=== PATIENT | male | born 1945 | race Caucasian/White ===

== ENCOUNTER 2018-07-04 20:07 | Inpatient (IN) | payer MEDICARE ==
[~2018-07-04] VITALS: Ht 190.5 cm; Wt 69.9 kg
--- NOTE | 2018-07-05 20:45 | NUR ---
GPS-CSR RETAIL NOTES: PATIENT ADMITTED FROM [facility]. ADMITTED ON 5149 FOR DTS. CAME TO THE UNIT AROUND 2044 VIA GURNEY, BROUGHT IN BY 2 EMT'S. PATIENT IS ADMITTED DUE TO SUICIDAL IDEATION AND A DESIRE TO VIA SHOOTING HIMSELF WITH HIS GUN. PT STATED "IF I WERE TO KILL MYSELF I WOULD SHOOT MYSELF IT WOULD BE QUICK AND EASY". PLACED PATIENT IN BED COMFORTABLY. PATIENT SHOWS NO S/SX OF ANY DISTRESS, RESPIRATION EVEN, BREATHING PATTERN NON-LABORED, DENIES PAIN OR DISCOMFORT AT THIS TIME. UPON FACE TO FACE ASSESSMENT PATIENT IS ALERT, ORIENTED 3, DEPRESSED, ANXIOUS, DENIES SI/HI OR HALLUCINATIONS AT THIS TIME. AMBULATES INDEPENDENTLY. PT. C/O PAIN ON HIS BACK ON A SCALE OF 7/10. BELONGINGS WERE INVENTORIED AND CHECKED FOR CONTRABAND. ORDERS WERE OBTAINED FROM DR. MOREL, AND UNDER THE MEDICAL CARE OF FEDERICO JULIAN, MED RECON DONE. SKIN ASSESSMENT DONE. BED LOCKED AND PLACED ON LOWEST POSITION TO MAINTAIN SAFETY. FALL PRECAUTIONS IMPLEMENTED. WILL CONTINUE TO MONITOR Q 15 MINS. FOR SAFETY AND BEHAVIOR.
[2018-07-05 21:00] VITALS: BP 141/95
[2018-07-05] MEDS ORDERED: MAGNESIUM HYDROXIDE 30 ML UDC PO PRN (21:00)
[2018-07-05] MEDS ORDERED: MAG HYDROX/AL HYDROX/SIMETH 30 ML UDC PO PRN (21:00)
[2018-07-05] MEDS ORDERED: DULO30CA2 PO (21:41)
[2018-07-05] MEDS ORDERED: OXYC10TA49 PO (21:41)
[2018-07-05] MEDS ORDERED: ONDA4TAB10 PO (21:41)
[2018-07-05] MEDS: TEMAZEPAM 7.5 MG CAPSULE PO PRN (22:06)
[2018-07-05] MEDS ORDERED: CLONIDINE HCL 0.1 MG TABLET PO PRN (23:30)
[2018-07-05] MEDS ORDERED: ONDANSETRON 4 MG TAB.RAPDIS SL PRN (23:30)
[2018-07-05] MEDS: HYDROCODONE/APAP 10/325MG 1 EA TABLET PO PRN (23:31)
[2018-07-05] MEDS: LORAZEPAM 0.5 MG TABLET PO PRN (23:51)
[2018-07-06] MEDS: HYDROCODONE/APAP 10/325MG 1 EA TABLET PO PRN ×3 (05:40→18:53)
[2018-07-06 07:32] LABS: BASOPHILS # (AUTO) 0.1 /CMM (0.0-0.2); BASOPHILS % (AUTO) 0.7 % (0.0-2.0); EOSINOPHILS % (AUTO) 0.5 % (0.0-6.0); HEMATOCRIT 43 % (39-51); LYMPHOCYTES # (AUTO) 2.1 /CMM (0.8-4.8); LYMPHOCYTES % (AUTO) 27.6 % (20.0-44.0); MEAN CORPUSCULAR HGB CONC 35 g/dl (31.0-36.0); MEAN CORPUSCULAR VOLUME 104 fL (80-96); MONOCYTES % (AUTO) 13.7 % (2.0-12.0); NEUTROPHILS # (AUTO) 4.4 /CMM (1.8-8.9); NEUTROPHILS % (AUTO) 57.5 % (43.0-81.0); PLATELET COUNT (AUTO) 240 /CMM (150-450); RED BLOOD CELL COUNT(AUTO) 4.15 MIL/uL (4.5-6.0); WHITE BLOOD COUNT (AUTO) 7.6 K/uL (4.3-11.0)
[2018-07-06 07:44] LABS: ALANINE AMINOTRANSFERASE 42 U/L (12-78); ALBUMIN 3.6 g/dL (3.4-5.0); ALKALINE PHOSPHATASE 58 U/L (46-116); ASPARTATE AMINOTRANSFERASE 33 U/L (15-37); BILIRUBIN,TOTAL 1.2 mg/dL (0.2-1.0); CALCIUM, SERUM 8.9 mg/dL (8.5-10.1); CARBON DIOXIDE 29 mmol/L (21-32); CHLORIDE 96 mmol/L (98-107); CREATININE 0.6 mg/dL (0.6-1.3); GLUCOSE 104 mg/dL (74-106); MAGNESIUM 2.3 mg/dL (1.8-2.4); PHOSPHORUS 2.8 mg/dL (2.5-4.9); SODIUM SERUM 133 mmol/L (136-145); TOTAL PROTEIN, SERUM 7.1 g/dL (6.4-8.2); UREA NITROGEN, BLOOD 10 mg/dL (7-18)
[2018-07-06 07:47] LABS: POTASSIUM 2.8 mmol/L (3.5-5.1)
[2018-07-06 07:54] LABS: CHOLESTEROL 134 mg/dL (<200); HDL CHOLESTEROL 56 mg/dL (40-60); LDL 78 mg/dL (0-99); THYROID STIMULATING HORMONE 5.064 uIU/mL (0.358-3.74); TRIGLYCERIDES 46 mg/dL (30-150)
[2018-07-06 08:00] VITALS: BP 133/89
[2018-07-06] MEDS: POTASSIUM CHLORIDE 10 MEQ TABLET.SA PO SCH ×2 (08:28→10:30)
[2018-07-06 08:48] LABS: APPEARANCE,URINE CLEAR (CLEAR); BILIRUBIN,URINE NEGATIVE (NEGATIVE); BLOOD, URINE NEGATIVE Ery/uL (NEGATIVE); COLOR,URINE YELLOW (YELLOW); KETONES,URINE NEGATIVE (NEGATIVE); LEUKOCYTE ESTERASE ,URINE NEGATIVE (NEGATIVE); NITRITE, URINE NEGATIVE (NEGATIVE); PROTEIN,URINE NEGATIVE (NEGATIVE); UGLUCOSE NEGATIVE (NEGATIVE); UROBILINOGEN,URINE 0.2 EU/dL (0.2)
[2018-07-06] MEDS: LORAZEPAM 0.5 MG TABLET PO PRN ×2 (10:27→22:37)
--- NOTE | 2018-07-06 10:28 | NUR ---
GPS/RN-NOTES PATIENT REQUESTING FOR ATIVAN FOR ANXIETY. ATIVAN 0.5MG P.O GIVEN PRN ORDER. WILL CONT. MONITORING FOR SAFETY AND BEHAVIOR.
--- NOTE | 2018-07-06 12:44 | NUR ---
GPS/RN-NOTES PATIENT REQUESTING FOR NORCO FOR 8/10 GENERALIZED BODY PAIN. NORCO 10/325MG P.O GIVEN PRN ORDER.
[2018-07-06 16:00] VITALS: BP 127/88
[2018-07-06] MEDS: NICOTINE PATCH (14MG) 14 MG PATCH.TD24 TD SCH (16:17)
--- NOTE | 2018-07-06 18:54 | NUR ---
GPS/RN-NOTES PATIENT REQUESTING FOR NORCO FOR 8/10 GENERALIZED BODY PAIN. NORCO 10/325MG P.O GIVEN PRN ORDER.
--- NOTE | 2018-07-06 19:53 | NUR ---
GPS/RN OPENING NOTES RECEIVED PATIENT AWAKE, ABLE TO VERBALIZE NEEDS, AMBULATORY, PAIN MEDICATION WAS GIVEN EARLY BEFORE START OF SHIFT, REPORT RECEIVED FROM AM RN FOR YENNY.WILL MONITOR.
[2018-07-06 20:00] VITALS: BP 130/67
--- NOTE | 2018-07-06 20:31 | NUR ---
GPS/RN NOTES PATIENT REQUESTING FOR SLEEP MEDICATION REPORTED UNABLE TO SLEEP WELL.WILL MONITOR.
[2018-07-06] MEDS: DULOXETINE HCL 30 MG CAPSULE.DR PO SCH (21:15)
[2018-07-06] MEDS: TEMAZEPAM 7.5 MG CAPSULE PO PRN (21:16)
--- NOTE | 2018-07-06 22:38 | NUR ---
GPS/RN NOTES REQUESTED ATIVAN PRN PATIENT REPORTED INABILITY TO RELAX.
[2018-07-07] MEDS: HYDROCODONE/APAP 10/325MG 1 EA TABLET PO PRN ×4 (02:58→21:08)
[2018-07-07 08:00] VITALS: BP 141/91
[2018-07-07] MEDS: NICOTINE PATCH (14MG) 14 MG PATCH.TD24 TD SCH (09:19)
[2018-07-07] MEDS: LORAZEPAM 0.5 MG TABLET PO PRN ×2 (09:22→15:03)
[2018-07-07 16:00] VITALS: BP 134/80
--- NOTE | 2018-07-07 17:32 | NUR ---
GPS RN NOTES-- PT'S NEED MET AND ANTICIPATED. PT HAS BEEN MED COMPLIANT AND COOPERATIVE WITH TREATMENT PLAN. PT IS NOT IN ANY APPARENT DISTRESS.SAFETY MEASURES ARE IN PLACE. REMINDED PT TO USE CALL DEWITT WHEN ASSISTANCE IS NEEDED.
[2018-07-07 20:19] VITALS: BP 113/66
[2018-07-07] MEDS: DULOXETINE HCL 30 MG CAPSULE.DR PO SCH (21:07)
[2018-07-07] MEDS: TEMAZEPAM 7.5 MG CAPSULE PO PRN (22:15)
[2018-07-08] MEDS: LORAZEPAM 0.5 MG TABLET PO PRN (00:10)
[2018-07-08] MEDS: HYDROCODONE/APAP 10/325MG 1 EA TABLET PO PRN ×2 (03:39→14:43)
--- NOTE | 2018-07-08 03:41 | NUR ---
GPS RN NOTE, PATIENT HAS A COMPLAINT OF CHRONIC BILATERAL LEG PAIN AT 8 OUT 10 ON THE PAIN SCALE AND IS REQUESTING NORCO AT THIS TIME. PATIENT VITAL SIGNS ARE STABLE. GAVE NORCO 10-325 1 TAB PO Q6HR PRN ORDERED. WILL REASSESS PAIN AND I WILL CONTINUE TO MONITOR THIS PATIENT.
[2018-07-08 06:11] LABS: APPEARANCE,URINE CLEAR (CLEAR); BILIRUBIN,URINE NEGATIVE (NEGATIVE); BLOOD, URINE NEGATIVE Ery/uL (NEGATIVE); COLOR,URINE YELLOW (YELLOW); KETONES,URINE NEGATIVE (NEGATIVE); LEUKOCYTE ESTERASE ,URINE NEGATIVE (NEGATIVE); NITRITE, URINE NEGATIVE (NEGATIVE); PROTEIN,URINE NEGATIVE (NEGATIVE); UGLUCOSE NEGATIVE (NEGATIVE); UROBILINOGEN,URINE 0.2 EU/dL (0.2)
[2018-07-08 08:00] VITALS: BP 139/98
[2018-07-08] MEDS: NICOTINE PATCH (14MG) 14 MG PATCH.TD24 TD SCH (09:24)
--- NOTE | 2018-07-08 12:36 | NUR ---
BRIDGETTE called the pt's , Jennifer ([phone]), and left her a voicemail stating that the SW would like to discuss the pt's initial treatment/discharge plan.
--- NOTE | 2018-07-08 15:18 | NUR ---
A man called from [phone] and stated that this was not the correct number to reach Jennifer who the had left a message for.
--- NOTE | 2018-07-08 15:19 | NUR ---
BRIDGETTE decided to try the number listed for the pt in case it was a home number ([phone]) and Jennifer, pt's , answered the phone. SW received the accurate cell phone number from her and went on to discuss the treatment plan. BRIDGETTE stated that the psychiatrist will eventually decide when to release the pt based off of his behaviors and adjustment to the medication. BRIDGETTE asked about transportation back at the time of discharge and the pt's stated that she would come and pick him up. BRIDGETTE then informed her that she would keep her updated as to when that will be.
--- NOTE | 2018-07-08 15:21 | NUR ---
Initial Discharge Plan: Pt currently lives in his home with his and his daughter located at [address] [place] [address]; ([phone]). Per pt, he would like to return home. Per pt's , Jennifer ([phone]), she would like him to return home as well. SW will work with the pt, his family and the MD regarding appropriate discharge plan. SW will form a safe and proper discharge.
[2018-07-08 16:00] VITALS: BP 131/88
[2018-07-08] MEDS: ACETAMINOPHEN 325 MG TABLET PO PRN (18:38)
[2018-07-08 20:00] VITALS: BP 154/89
[2018-07-08] MEDS: oxyCODONE/APAP (5/325 MG) 1 UDTAB TABLET PO PRN (20:50)
[2018-07-08] MEDS: DULOXETINE HCL 30 MG CAPSULE.DR PO SCH (22:18)
[2018-07-08] MEDS: TEMAZEPAM 7.5 MG CAPSULE PO PRN (23:46)
[2018-07-09 08:00] VITALS: BP 150/86
[2018-07-09] MEDS: oxyCODONE/APAP (5/325 MG) 1 UDTAB TABLET PO PRN ×2 (08:03→14:06)
[2018-07-09] MEDS: NICOTINE PATCH (14MG) 14 MG PATCH.TD24 TD SCH (08:04)
[2018-07-09 15:02] LABS: CALCIUM, SERUM 8.8 mg/dL (8.5-10.1); CARBON DIOXIDE 30 mmol/L (21-32); CHLORIDE 101 mmol/L (98-107); CREATININE 0.8 mg/dL (0.6-1.3); GLUCOSE 105 mg/dL (74-106); POTASSIUM 3.3 mmol/L (3.5-5.1); SODIUM SERUM 136 mmol/L (136-145); UREA NITROGEN, BLOOD 11 mg/dL (7-18)
[2018-07-09 16:00] VITALS: BP 133/71
[2018-07-09 20:13] VITALS: BP 154/72
[2018-07-09] MEDS: ACETAMINOPHEN 325 MG TABLET PO PRN (20:29)
[2018-07-09] MEDS: DULOXETINE HCL 30 MG CAPSULE.DR PO SCH (21:19)
--- NOTE | 2018-07-09 21:35 | NUR ---
GPS RN NOTES: FEDERICO MUIR DIE SETTER WAS ON THE UNIT, NOTIFIED ON MY FINDING PT. POTASSIUM LEVEL 3.3 , NEW ORDERS RECEIVED POTASSIUM CHLORIDE 40 MEQ PO X1 , NEW ORDERS RECEIVED AND CARRIED OUT.
[2018-07-09] MEDS ORDERED: POTASSIUM CHLORIDE 20 MEQ TAB.PRT.SR PO ONE (22:00)
[2018-07-09] MEDS: TEMAZEPAM 7.5 MG CAPSULE PO PRN (23:05)
[2018-07-10] MEDS: oxyCODONE/APAP (5/325 MG) 1 UDTAB TABLET PO PRN ×3 (02:31→15:38)
[2018-07-10] MEDS: LORAZEPAM 0.5 MG TABLET PO PRN (05:59)
[2018-07-10 08:00] VITALS: BP 155/94
[2018-07-10] MEDS: NICOTINE PATCH (14MG) 14 MG PATCH.TD24 TD SCH (08:22)
--- NOTE | 2018-07-10 09:32 | NUR ---
GPS/RN-NOTES PATIENT REQUESTING FOR PERCOCET 5 FOR 9/10 GENERALIZED BODY PAIN. PERCOCET 5/325MG P.O GIVEN PRN ORDER.
[2018-07-10] MEDS ORDERED: TEMAZEPAM 7.5 MG CAPSULE PO PRN (10:00)
--- NOTE | 2018-07-10 10:11 | NUR ---
BRIDGETTE called the pt's , Jennifer ([phone]), and informed her that the pt will be discharged on Sunday and she stated that she would be the one to pick him up. She asked that we schedule the discharge from between 12:30-1PM due to her long commute to the hospital. BRIDGETTE stated that she will accommodate her. BRIDGETTE also informed her that the pt stated that he is having trouble sleeping and he is feeling pain so the psychiatrist is making a medication adjustment today.
--- NOTE | 2018-07-10 15:39 | NUR ---
GPS/RN-NOTES PATIENT REQUESTING FOR PERCOCET 5 FOR 9/10 GENERALIZED BODY PAIN. PERCOCET 5/325MG P.O GIVEN PRN ORDER.
--- NOTE | 2018-07-10 15:56 | NUR ---
Group note: Pt attended a group session on 07/10/18 at 11AM discussing the topic of post discharge goals. S: Pt stated, I want to be with my family. For a long time I thought that I had control and when I lost it, it was good because I realized what I needed to do to address my depression to prevent future breaks. O: Pt was present during the group session and was cooperative. Pt appeared to be in a euthymic mood and presented with a calm and cooperative affect. A: Pt understood that his goal after being discharged from the hospital requires that he communicate with his family members about the struggles that he faces. He also realized that he has to be able to focus on the positives such as family instead of the negatives such as his pain. P: Pt will continue milieu treatment and medication stabilization.
[2018-07-10 16:00] VITALS: BP 142/84
[2018-07-10 20:00] VITALS: BP_SYST 140; BP_SYST 169; BP_DIAS 102; BP_DIAS 88
[2018-07-10] MEDS: DULOXETINE HCL 30 MG CAPSULE.DR PO SCH (22:08)
[2018-07-11] MEDS: oxyCODONE/APAP (5/325 MG) 1 UDTAB TABLET PO PRN ×4 (01:28→21:18)
[2018-07-11 07:51] LABS: CALCIUM, SERUM 8.9 mg/dL (8.5-10.1); CARBON DIOXIDE 27 mmol/L (21-32); CHLORIDE 102 mmol/L (98-107); CREATININE 0.8 mg/dL (0.6-1.3); GLUCOSE 96 mg/dL (74-106); POTASSIUM 3.7 mmol/L (3.5-5.1); SODIUM SERUM 137 mmol/L (136-145); UREA NITROGEN, BLOOD 10 mg/dL (7-18)
[2018-07-11 08:00] VITALS: BP 137/64
[2018-07-11] MEDS: NICOTINE PATCH (14MG) 14 MG PATCH.TD24 TD SCH (08:47)
--- NOTE | 2018-07-11 08:55 | NUR ---
GPS/RN-NOTES PATIENT REQUESTING FOR PERCOCET 5 FOR 9/10 GENERALIZED BODY PAIN. PERCOCET 5/325MG P.O GIVEN PRN ORDER.
--- NOTE | 2018-07-11 15:56 | NUR ---
Jennifer ([phone]), pt's , called the SW and stated that she would be able to continuous pickling line pickler the pt tomorrow but she believes that she will be a little due to the weather conditions. SW stated that the timing is not a problem and she will just make sure that everything will be set for when she arrives.
[2018-07-11 16:00] VITALS: BP 152/97
--- NOTE | 2018-07-11 16:15 | NUR ---
SW asked the pt if he has any access to any firearms due to the fact that he was put on a hold for suicidal ideation with a plan to shoot himself. He stated that he had firearms but he had given them to his grandsons who do not live near him and have them locked up.
--- NOTE | 2018-07-11 16:17 | NUR ---
GPS/RN-NOTES PATIENT REQUESTING FOR PERCOCET 5 FOR 8/10 GENERALIZED BODY PAIN. PERCOCET 5/325MG P.O GIVEN PRN ORDER.
--- NOTE | 2018-07-11 16:17 | NUR ---
SW called the pt's , Jennifer ([phone]), to verify whether or not the pt has access to firearms. She stated that the pt had given them to his grandsons who live in [place] and have them locked up with a code. BRIDGETTE thanked for the information and confirmed that the pt will be discharged according to plan tomorrow.
--- NOTE | 2018-07-11 19:25 | NUR ---
GPS RN NOTE, RECEIVED PATIENT AWAKE AND IN BED NO S/S OR COMPLAINTS OF PAIN AT THIS TIME. PATIENT IS DISPLAYING NO S/S OF APPARENT DISTRESS AT THIS TIME. PATIENT BREATHING IS UNLABORED WITH EQUAL RISE AND FALL OF THE CHEST. PATIENT IS ALERT AND ORIENTED X 3 ON ROOM AIR WITH A SPO2 0F 95%. PATIENT IS MED COMPLIANT, DISORGANIZED, CALM, COOPERATIVE, AND NEEDS REORIENTATION. PATIENT DENIES SUICIDE AND HOMICIDAL IDEATIONS AT THIS TIME. PATIENT ASSISTED WITH TURNING AND REPOSITIONING Q2HR AND PRN FOR COMFORT AND CIRCULATION. PATIENT HAS NO NEEDS AT THIS TIME. PATIENT EDUCATED ON THE USE OF THE CALL DEWITT. PATIENT BED SIDE RAILS ARE UP X 2 FOR SAFETY, BED IS LOCKED AND LOW. WILL CONTINUE TO MONITOR AND MAINTAIN SAFETY Q15 MIN WITH THE HELP OF STAFF.
--- NOTE | 2018-07-11 19:58 | NUR ---
GPS RN NOTE, PATIENT HAS A COMPLAINT OF HAVING INDIGESTION AND IS REQUESTING MAALOX AT THIS TIME. PATIENT VITAL SIGNS ARE STABLE. GAVE MAALOX 30ML PO Q4HR PRN ORDERED. WILL CONTINUE TO MONITOR THIS PATIENT.
[2018-07-11 20:00] VITALS: BP 148/79
--- NOTE | 2018-07-11 21:18 | NUR ---
GPS RN NOTE, PATIENT HAS A COMPLAINT OF GENERALIZED PAIN AT 7 OUT 10 ON THE PAIN SCALE AND IS REQUESTING PERCOCET AT THIS TIME. PATIENT VITAL SIGNS ARE STABLE. GAVE PERCOCET 5-325 2 UD TABS PO Q6HR PRN ORDERED. WILL REASSESS PAIN AND I WILL CONTINUE TO MONITOR THIS PATIENT.
[2018-07-11] MEDS ORDERED: DULOXETINE HCL 30 MG CAPSULE.DR PO SCH (22:00)
[2018-07-11] MEDS: ZOLPIDEM TARTRATE 5 MG TABLET PO PRN ×2 (22:24→23:24)
--- NOTE | 2018-07-11 22:24 | NUR ---
GPS RN NOTE, PATIENT HAS A COMPLAINT THAT HE IS UNABLE TO SLEEP AND IS REQUESTING AMBIEN AT THIS TIME. PATIENT VITAL SIGNS ARE STABLE. GAVE AMBIEN 5 MG PO HS PRN ORDERED. WILL REASSESS FOR INSOMNIA AND I WILL CONTINUE TO MONITOR THIS PATIENT.
--- NOTE | 2018-07-11 23:24 | NUR ---
GPS RN NOTE, PATIENT HAS A COMPLAINT THAT HE IS UNABLE TO SLEEP AND IS REQUESTING AMBIEN AT THIS TIME. PATIENT VITAL SIGNS ARE STABLE. GAVE AMBIEN 5 MG PO HS PRN ORDERED A REPEATED DOSE. WILL REASSESS FOR INSOMNIA AND I WILL CONTINUE TO MONITOR THIS PATIENT.
[2018-07-12] MEDS: oxyCODONE/APAP (5/325 MG) 1 UDTAB TABLET PO PRN ×2 (03:21→09:51)
[2018-07-12 08:00] VITALS: BP 122/96
[2018-07-12] MEDS: NICOTINE PATCH (14MG) 14 MG PATCH.TD24 TD SCH (08:50)
--- NOTE | 2018-07-12 09:04 | NUR ---
DR. WILLIAMSON GAVE AN ORDER TO D/C HOLD AND D/C HOME AND TO FOLLOW UP WITH PSYCH AND MEDICAL DOCTORS.
--- NOTE | 2018-07-12 09:52 | NUR ---
GPS/RN-NOTES PATIENT REQUESTING FOR PERCOCET FOR 10/10 LOWER BACK PAIN. PERCOCET 5/325MG 2 TABS. P.O GIVEN PRN ORDER.
--- NOTE | 2018-07-12 13:30 | NUR ---
GPS/RN-NOTES PATIENT DISCHARGE TO HOME TODAY. DR. WILLIAMSON COVERING FOR DR. CARLTON AND DR. DORANTES AGREES WITH ORDERS. PATIENT DID NOT VERBALIZE SI/HI,DENIES VISUAL/AUDITORY HALLUCINATIONS AT THE TIME OF DISCHARGE . 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 PATIENT LEFT THE UNIT IN STABLE CONDITION A/O X3 AMBULATORY WITH STEADY GAIT ,NO ACUTE DISTRESS NOTED. ALL DISCHARGE MEDICATIONS WAS REVIEWED WITH THE PATIENT WITH UNDERSTANDING,RX WAS GIVEN TO THE PATIENT AND ENDORSE TO TOM. PATIENT LEFT WITH ALL BELONGINGS ,ASSISTED IN THE LOBBY FOR SAFETY.
--- NOTE | 2018-07-12 14:03 | NUR ---
Discharge Note: Pt was discharged home located at [address] [place] [id number]; ([phone]). Pt was picked up by his , Jennifer ([phone]), around 12:30PM. Upon discharge, the pt appeared to be in a euthymic mood and presented with a calm and cooperative affect. Pt stated that he was happy about being able to go home to his family and focusing on the positive aspects of his life. Pt denied both suicidal and homicidal ideation as well as visual and auditory hallucinations. Pt was provided with smoking cessation referrals upon discharge as well. Pt was referred to [facility] located at [address], [place] [address]; and a referral was faxed to [phone]. 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 Roz Yee, located at [address], [place] [address]; .
== END 2018-07-12 13:30 | disposition home or self-care (01) | DRG 885 ==
LOC: GPS 07-05 20:34
PROVIDERS: ADMIT Psychiatry & Neurology Psychiatry; ATTEND Psychiatry & Neurology Psychiatry
DX: F33.2 Major depressive disorder, recurrent severe without psychotic features (principal); R45.851 Suicidal ideations; E87.6 Hypokalemia; F41.9 Anxiety disorder, unspecified; F29 Unspecified psychosis not due to a substance or known physiological condition; G89.4 Chronic pain syndrome; M19.90 Unspecified osteoarthritis, unspecified site; G62.9 Polyneuropathy, unspecified; F17.210 Nicotine dependence, cigarettes, uncomplicated
CPT/HCPCS: 36415; 80048-TC; 80053-TC; 80061-TC; 81000-TC; 83735-TC; 84100-TC; 84439-TC; 84443-TC; 85025-TC; 87081-TC